=== PATIENT | male | born 1975 | race Two or more races ===

== ENCOUNTER 2017-03-16 22:40 | Emergency (ER) | payer OTHER ==
[~2017-03-16] VITALS: Ht 182.9 cm; Wt 97.1 kg
[~2017-03-16 22:40] MED LIST: ARIP5TAB13; LORA-655; TEMA15CA; VENL75TA
[2017-03-16 22:59] VITALS: BP 143/69
== END 2017-03-17 02:19 | disposition left against medical advice (07) ==
LOC: ER 22:41
DX: M79.604 Pain in right leg (principal); Z53.21 Procedure and treatment not carried out due to patient leaving prior to being seen by health care provider